=== PATIENT | male | born 1980 ===

== ENCOUNTER 2025-02-27 11:32 | Day surgery (SDC) | payer OTHER ==
[2025-02-27] MEDS ORDERED: Propofol 200 MG/20 ML SDV ONE (13:25)
== END 2025-02-27 14:25 | disposition home or self-care (01) ==
LOC: LB.SDS 11:32
PROVIDERS: ATTEND Surgery
DX: Z12.11 Encounter for screening for malignant neoplasm of colon (principal); K57.30 Diverticulosis of large intestine without perforation or abscess without bleeding; I10 Essential (primary) hypertension; Z80.0 Family history of malignant neoplasm of digestive organs; Z79.899 Other long term (current) drug therapy
CPT/HCPCS: 45378; J2704; J7030